=== PATIENT | female | born 1995 ===

== ENCOUNTER 2024-12-20 16:17 | Emergency (ER) | payer SELFPAY ==
[2024-12-20 17:39] VITALS: BP 121/82
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
[2024-12-20] MEDS: TYLENOL 1000 MG PO (18:52)
== END 2024-12-20 19:28 | disposition home or self-care (01) ==
LOC: EMR 16:17
PROVIDERS: EMERGENCY PHYSICIAN Student in an Organized Health Care Education/Training Program
DX: S16.1XXA Strain of muscle, fascia and tendon at neck level, initial encounter (principal); S10.91XA Abrasion of unspecified part of neck, initial encounter; V49.40XA Driver injured in collision with unspecified motor vehicles in traffic accident, initial encounter
CPT/HCPCS: 99285; 70450; 72125